=== PATIENT | male | born 1945 | race Caucasian/White ===

== ENCOUNTER 2020-06-24 08:21 | Day surgery (SDC) | payer MEDICARE ==
[2020-06-23 08:15] VITALS: BMI 33.7
== END 2020-06-24 11:35 | disposition home or self-care (01) ==
LOC: RAD 08:21
PROVIDERS: ATTEND Neurological Surgery
PROC: 009U3ZZ Drainage of Spinal Canal, Percutaneous Approach (ICD-10-PCS; principal; 2020-06-24)
DX: G91.2 (Idiopathic) normal pressure hydrocephalus (principal); I10 Essential (primary) hypertension
CPT/HCPCS: 62270

== ENCOUNTER 2020-07-17 12:14 | Outpatient (CLI) | payer MEDICARE ==
[2020-07-17 20:56] LABS: SARS-CoV-2 PCR by NAA Not Detected (NotDetected)
== END 2020-07-17 12:15 | disposition home or self-care (01) ==
LOC: LABBT 12:14
PROVIDERS: ATTEND Neurological Surgery
DX: Z01.818 Encounter for other preprocedural examination (principal); G91.2 (Idiopathic) normal pressure hydrocephalus; Z20.822 Contact with and (suspected) exposure to COVID-19
CPT/HCPCS: U0003; U0005; 87635; 93005; 93010

== ENCOUNTER 2020-07-17 12:15 | Inpatient (IN) | payer MEDICARE ==
[2020-07-21 09:10] VITALS: BMI 33.7
[2020-07-22] MEDS ORDERED: Lidocaine 0.5%/Epinephrine 1:200,000 50 ml Vial ONE (06:10)
[2020-07-22] MEDS ORDERED: Fentanyl 100 MCG/2 ML VIAL ONE ×3 (06:30→09:20)
[2020-07-22] MEDS ORDERED: Glycopyrrolate 0.2 MG/ML 5 ML SYRINGE ONE (07:30)
[2020-07-22] MEDS ORDERED: Ondansetron PF 4 MG/2 ML Vial ONE (07:30)
[2020-07-22] MEDS ORDERED: Dexamethasone 20 MG/5 ML VIAL ONE (07:30)
[2020-07-22] MEDS ORDERED: Rocuronium Bromide 10 MG/ML (10ML VIAL) ONE (07:30)
[2020-07-22] MEDS ORDERED: PROPOFOL 200 MG/20 ML VIAL ONE (07:30)
[2020-07-22] MEDS ORDERED: Lidocaine 1% PF 5 ML VIAL ONE (07:30)
[2020-07-22] MEDS ORDERED: PHENYLEPHRINE-NS 100 MCG/ML 10 ML SYRINGE ONE (07:30)
[2020-07-22] MEDS ORDERED: Labetalol HCl 100 MG/20 ML VIAL SLOW IVP PRN (08:32)
[2020-07-22] MEDS ORDERED: Docusate 100 MG CAP PO PRN (08:32)
[2020-07-22] MEDS ORDERED: Ondansetron PF 4 MG/2 ML Vial IVP PRN (08:32)
[2020-07-22] MEDS ORDERED: hydrALAZINE 20 MG/ML VIAL SLOW IVP PRN (08:32)
[2020-07-22] MEDS ORDERED: diphenhydrAMINE 50 MG/ML VIAL IVP PRN (08:32)
[2020-07-22] MEDS ORDERED: Morphine 4 MG/ML VIAL SLOW IVP PRN (08:32)
[2020-07-22] MEDS ORDERED: Acetaminophen/Codeine 30-300mg Tablet PO PRN (08:33)
[2020-07-22] MEDS ORDERED: TESTOSTERONE FS SCH (08:45)
[2020-07-22] MEDS ORDERED: hydrALAZINE 20 MG/ML VIAL ONE (09:01)
[2020-07-22] MEDS ORDERED: CBD OIL PO PRN (09:44)
[2020-07-22] MEDS ORDERED: Tamsulosin HCl 0.4 MG CAP ONE (12:42)
[2020-07-22] MEDS ORDERED: CEFAZOLIN 2 GM in Premix Bag 1 BAG IVPB SCH ×2 (14:00→17:00)
[2020-07-22] MEDS: Lactinex Tablet PO SCH (16:29)
[2020-07-22] MEDS: Lisinopril 20 MG TAB PO SCH (16:29)
[2020-07-22] MEDS: Sodium Chloride 0.9% 1,000 ML IV SCH (16:29)
[2020-07-22] MEDS: CEFAZOLIN 2 GM in Premix Bag 1 BAG IVPB SCH (16:52)
[2020-07-23] MEDS: Sodium Chloride 0.9% 1,000 ML IV SCH ×2 (00:04→10:47)
[2020-07-23] MEDS: CEFAZOLIN 2 GM in Premix Bag 1 BAG IVPB SCH ×2 (00:05→10:19)
[2020-07-23] MEDS: Acetaminophen/Codeine 30-300mg Tablet PO PRN ×2 (03:27→10:21)
[2020-07-23] MEDS ORDERED: Multivit, Therapeutic 1 TAB PO SCH (09:00)
[2020-07-23] MEDS ORDERED: BEET PO SCH (09:00)
[2020-07-23] MEDS: Lisinopril 20 MG TAB PO SCH (10:19)
[2020-07-23] MEDS: Lactinex Tablet PO SCH (10:19)
[2020-07-23 12:10] VITALS: BP 183/97; TEMP 98
== END 2020-07-23 13:04 | disposition home or self-care (01) | DRG 33 ==
LOC: SURG A 07-22 05:49 → EDSTATUS 07-22 12:15 → SURG B 07-22 14:58
PROVIDERS: ADMIT Neurological Surgery; ATTEND Neurological Surgery
PROC: 00160J6 Bypass Cerebral Ventricle to Peritoneal Cavity with Synthetic Substitute, Open Approach (ICD-10-PCS; principal; 2020-07-22)
DX: G91.2 (Idiopathic) normal pressure hydrocephalus (principal); E78.00 Pure hypercholesterolemia, unspecified; G89.29 Other chronic pain; I10 Essential (primary) hypertension; M10.9 Gout, unspecified; G47.30 Sleep apnea, unspecified; Z90.49 Acquired absence of other specified parts of digestive tract; R33.9 Retention of urine, unspecified
CPT/HCPCS: J0360; J0690; J1100; J2001; J2405; J2704; J3010; J3490

== ENCOUNTER 2020-08-01 07:21 | Inpatient (IN) | payer MEDICARE ==
[2020-08-01 08:01] LABS: #Basophils 0.1 thou/uL (0.0-0.2); #Eosinphils 0.2 thou/uL (0.0-0.7); #Lymphocytes 1.7 thou/uL (1.20-3.40); #Monocytes 0.4 thou/uL (0.11-0.59); %Basophils 0.4 % (0.0-1.0); %Eosinophils 1.3 % (0.0-10.0); %Lymphocytes 13.9 % (21.0-51.0); %Monocytes 3.5 % (0.0-10.0); %Neutrophils 80.9 % (42.0-75.0); Mean Corpuscular HGB CONC 32.6 g/dL (32.0-36.0); Mean Corpuscular Hemoglobin 29.9 pg (27.0-31.0); Mean Corpuscular Volume 91.8 fL (78.0-98.0); Platelet Count 398 thou/uL (130-400); RBC Distribution Width 14.3 % (11.5-14.5); Red Blood Cell (RBC) Count 6.01 mill/uL (4.70-6.10); White Blood Cell (WBC) Count 12.3 thou/uL (4.8-10.8)
[2020-08-01] MEDS ORDERED: Cefepime 2 GM VIAL ONE (08:06)
[2020-08-01] MEDS ORDERED: Ampicillin 2 GM VIAL ONE (08:06)
[2020-08-01 08:13] LABS: PTT 35.1 sec (22.9-36.1); Prothrombin Time 13.8 sec (12.0-14.7)
[2020-08-01] MEDS ORDERED: VANCOMYCIN 2 GRAM/400 ML BAG 2 GM in Premix Bag 1 BAG IVPB SCH (08:15)
[2020-08-01 08:20] LABS: ALT (SGPT) 21 U/L (8-55); AST (SGOT) 16 U/L (5-34); Alkaline Phosphatase 96 U/L (40-110); Anion Gap 13 mmol/L (10-20); BUN (Urea Nitrogen) 16 mg/dL (8.4-25.7); Calc. Creatinine Clearance 0 mL/min (70-130); Calcium 9.3 mg/dL (7.8-10.44); Carbon Dioxide 22 mmol/L (23-31); Chloride 107 mmol/L (98-107); Globulin 3.6 g/dL (2.4-3.5); Glucose 116 mg/dL (83-110); Protein, Total 7.6 g/dL (5.8-8.1); Sodium 138 mmol/L (136-145)
[2020-08-01 08:56] LABS: Bilirubin Negative (Negative); Blood, Urine Negative (Negative); Clarity Turbid (Clear); Glucose, Urine (Dipstick) Normal (Negative); Ketone, Urine Negative (Negative); Leukocyte Negative Leu/uL (Negative); Nitrite Negative (Negative); Protein, Urine (Dipstick) 10 mg/dL (Neg-Trace); Specific Gravity, Urine 1.026 (1.002-1.036); Urobilinogen Normal mg/dL (Less than 2)
[2020-08-01] MEDS ORDERED: Fentanyl 100 MCG/2 ML VIAL ONE (10:16)
[2020-08-01 11:06] LABS: Color Of CSF Supernatant COLORLESS (Colorless); Unspun CSF Color COLORLESS (Colorless)
[2020-08-01 11:11] LABS: Tube # 4
[2020-08-01 11:34] LABS: CSF, Glucose 54 mg/dl (40-70); CSF, Protein 113 mg/dL (15-40)
[2020-08-01 12:13] LABS: CSF Source CSF; Clarity Clear (Clear); Tube # 4
[2020-08-01 12:14] LABS: Clarity Clear (Clear)
[2020-08-01 12:31] LABS: Cell Count Non Hematic 14 %; Lymphocytes 6 %; Segmented Neutrophils 80 %
[2020-08-01 12:37] LABS: Cell Count Non Hematic 11 %; Lymphocytes 19 %; Segmented Neutrophils 70 %
[2020-08-01] MEDS ORDERED: Ondansetron ODT 4 MG TAB PO PRN (13:09)
[2020-08-01] MEDS ORDERED: Ondansetron PF 4 MG/2 ML Vial IVP PRN (13:09)
[2020-08-01] MEDS ORDERED: AMPicillin 2 GM in Dextrose 5% in Water 100 ML IVPB SCH (14:00)
[2020-08-01] MEDS ORDERED: Cefepime 2 GM in Sodium Chloride 0.9% 100 ML IVPB SCH (15:00)
[2020-08-01 15:27] VITALS: BMI 32.1
[2020-08-01] MEDS ORDERED: Acyclovir Sodium 730 MG in Sodium Chloride 0.9% 250 ML 250 ML IVPB SCH (16:00)
[2020-08-01] MEDS: Cefepime 2 GM in Sodium Chloride 0.9% 100 ML IVPB SCH (16:06)
[2020-08-01 17:06] LABS: Amphetamine Not Detected (NotDetected); Barbiturates Screen Not Detected (NotDetected); Benzodiazepine Screen Not Detected (NotDetected); Cocaine Metabolite Screen Not Detected (NotDetected); Medtox Control Line Valid? VALID (VALID); Medtox Reader # READER 1; Methadone Not Detected (NotDetected); Methamphetamine Not Detected (NotDetected); Opiate Screen Detected (NotDetected); Oxycodone Screen Not Detected (NotDetected); Phencyclidine (PCP) Not Detected (NotDetected); THC/Cannabinoid Screen Not Detected (NotDetected); Tricyclic Screen Not Detected (NotDetected)
[2020-08-01] MEDS: AMPicillin 2 GM in Dextrose 5% in Water 100 ML IVPB SCH ×2 (17:26→21:39)
[2020-08-01] MEDS: Acyclovir Sodium 730 MG in Sodium Chloride 0.9% 250 ML 250 ML IVPB SCH (18:48)
[2020-08-01] MEDS: Vancomycin 1 GM in Premix Bag 1 BAG IVPB SCH ×2 (21:33→22:19)
[2020-08-01] MEDS: Acetaminophen 325 MG TAB PO PRN (21:39)
[2020-08-02] MEDS: Cefepime 2 GM in Sodium Chloride 0.9% 100 ML IVPB SCH ×4 (01:16→23:45)
[2020-08-02] MEDS: AMPicillin 2 GM in Dextrose 5% in Water 100 ML IVPB SCH ×6 (01:16→21:23)
[2020-08-02] MEDS: Acyclovir Sodium 730 MG in Sodium Chloride 0.9% 250 ML 250 ML IVPB SCH ×3 (03:10→17:25)
[2020-08-02 06:05] LABS: #Basophils 0.1 thou/uL (0.0-0.2); #Eosinphils 0.4 thou/uL (0.0-0.7); #Lymphocytes 2.6 thou/uL (1.20-3.40); #Monocytes 0.8 thou/uL (0.11-0.59); #Neutrophils 6.1 thou/uL (1.40-6.50); %Eosinophils 3.8 % (0.0-10.0); %Lymphocytes 26.4 % (21.0-51.0); %Monocytes 7.7 % (0.0-10.0); %Neutrophils 61.2 % (42.0-75.0); Hemoglobin 16.4 g/dL (14.0-18.0); Mean Corpuscular HGB CONC 31.8 g/dL (32.0-36.0); Mean Corpuscular Hemoglobin 28.8 pg (27.0-31.0); Mean Corpuscular Volume 90.5 fL (78.0-98.0); Mean Platelet Volume 7.8 fL (7.4-10.4); Platelet Count 329 thou/uL (130-400); RBC Distribution Width 14.3 % (11.5-14.5); Red Blood Cell (RBC) Count 5.69 mill/uL (4.70-6.10); White Blood Cell (WBC) Count 9.9 thou/uL (4.8-10.8)
[2020-08-02 06:26] LABS: Anion Gap 10 mmol/L (10-20); BUN (Urea Nitrogen) 14 mg/dL (8.4-25.7); Calc. Creatinine Clearance 84 mL/min (70-130); Carbon Dioxide 23 mmol/L (23-31); Chloride 110 mmol/L (98-107); Glucose 104 mg/dL (83-110); Potassium 3.8 mmol/L (3.5-5.1); Sodium 139 mmol/L (136-145)
[2020-08-02] MEDS: Enoxaparin Sodium 40 MG/0.4 ML SYRINGE SC SCH (08:37)
[2020-08-02] MEDS: Vancomycin 1 GM in Premix Bag 1 BAG IVPB SCH ×2 (10:10→20:19)
[2020-08-02] MEDS ORDERED: Lactinex Tablet PO SCH (12:30)
[2020-08-02] MEDS ORDERED: Polyethylene Glycol 3350 17 GM Packet PO SCH (12:30)
[2020-08-02] MEDS ORDERED: Lisinopril 20 MG TAB PO SCH (12:30)
[2020-08-02] MEDS ORDERED: AMPicillin 2 GM in Dextrose 5% in Water 100 ML IVPB SCH (18:00)
[2020-08-02] MEDS ORDERED: Amlodipine 5 MG TAB PO SCH (18:15)
[2020-08-02] MEDS: Senokot S 8.6-50 MG TAB PO SCH (20:19)
[2020-08-03] MEDS: AMPicillin 2 GM in Dextrose 5% in Water 100 ML IVPB SCH (00:48)
[2020-08-03] MEDS: Acyclovir Sodium 730 MG in Sodium Chloride 0.9% 250 ML 250 ML IVPB SCH ×3 (02:48→17:13)
[2020-08-03] MEDS ORDERED: Ampicillin 2 GM in Sodium Chloride 0.9% 100 ML IVPB SCH (05:00)
[2020-08-03] MEDS: Vancomycin 1 GM in Premix Bag 1 BAG IVPB SCH (08:24)
[2020-08-03 08:27] LABS: Vancomycin, Trough 11.7 ug/mL
[2020-08-03] MEDS ORDERED: Metoprolol Tartrate 5 MG/5 ML VIAL IVP PRN (08:28)
[2020-08-03] MEDS: Senokot S 8.6-50 MG TAB PO SCH ×2 (08:30→20:08)
[2020-08-03] MEDS: Polyethylene Glycol 3350 17 GM Packet PO SCH (08:31)
[2020-08-03] MEDS: Enoxaparin Sodium 40 MG/0.4 ML SYRINGE SC SCH (08:33)
[2020-08-03] MEDS: Acetaminophen 325 MG TAB PO PRN ×2 (08:34→20:09)
[2020-08-03] MEDS: Amlodipine 5 MG TAB PO SCH ×2 (08:34→20:08)
[2020-08-03] MEDS: Lactinex Tablet PO SCH (08:34)
[2020-08-03] MEDS: Lisinopril 20 MG TAB PO SCH (08:34)
[2020-08-03] MEDS ORDERED: Amlodipine 5 MG TAB PO SCH (09:00)
[2020-08-03] MEDS ORDERED: traMADol HCl 50 MG TAB PO PRN (09:21)
[2020-08-03] MEDS: Cefepime 2 GM in Sodium Chloride 0.9% 100 ML IVPB SCH ×2 (09:27→15:58)
[2020-08-03] MEDS: HYDROcodone/Acetaminophen 5/325 mg Tablet PO PRN (11:24)
[2020-08-03] MEDS: Vancomycin 1.5 GRAM/300 ML BAG 1.5 GM in Premix Bag 1 BAG IVPB SCH (20:08)
[2020-08-04] MEDS: Cefepime 2 GM in Sodium Chloride 0.9% 100 ML IVPB SCH ×4 (00:02→23:13)
[2020-08-04] MEDS: Acyclovir Sodium 730 MG in Sodium Chloride 0.9% 250 ML 250 ML IVPB SCH ×3 (01:38→17:10)
[2020-08-04] MEDS: HYDROcodone/Acetaminophen 5/325 mg Tablet PO PRN (07:02)
[2020-08-04] MEDS: Lisinopril 20 MG TAB PO SCH (08:58)
[2020-08-04] MEDS: Enoxaparin Sodium 40 MG/0.4 ML SYRINGE SC SCH (08:58)
[2020-08-04] MEDS: Amlodipine 5 MG TAB PO SCH ×2 (08:58→20:37)
[2020-08-04] MEDS: Lactinex Tablet PO SCH (08:58)
[2020-08-04] MEDS: Polyethylene Glycol 3350 17 GM Packet PO SCH (08:59)
[2020-08-04] MEDS: Senokot S 8.6-50 MG TAB PO SCH ×2 (08:59→20:40)
[2020-08-04] MEDS: Vancomycin 1.5 GRAM/300 ML BAG 1.5 GM in Premix Bag 1 BAG IVPB SCH ×2 (09:30→20:40)
[2020-08-04] MEDS: AMPicillin 1 GM in Sodium Chloride 0.9% 100 ML IVPB SCH ×2 (14:39→19:52)
[2020-08-05] MEDS: AMPicillin 1 GM in Sodium Chloride 0.9% 100 ML IVPB SCH ×4 (02:22→20:26)
[2020-08-05] MEDS: Acyclovir Sodium 730 MG in Sodium Chloride 0.9% 250 ML 250 ML IVPB SCH ×3 (02:53→22:48)
[2020-08-05] MEDS: Lisinopril 20 MG TAB PO SCH (09:17)
[2020-08-05] MEDS: Lactinex Tablet PO SCH (09:17)
[2020-08-05] MEDS: Senokot S 8.6-50 MG TAB PO SCH ×2 (09:17→20:26)
[2020-08-05] MEDS: Amlodipine 5 MG TAB PO SCH ×2 (09:17→20:26)
[2020-08-05] MEDS: HYDROcodone/Acetaminophen 5/325 mg Tablet PO PRN ×2 (09:17→16:00)
[2020-08-05] MEDS: Polyethylene Glycol 3350 17 GM Packet PO SCH (09:18)
[2020-08-05] MEDS: Enoxaparin Sodium 40 MG/0.4 ML SYRINGE SC SCH (09:18)
[2020-08-05 09:52] LABS: Vancomycin, Trough 17.2 ug/mL
[2020-08-05] MEDS: Cefepime 2 GM in Sodium Chloride 0.9% 100 ML IVPB SCH ×2 (10:25→15:58)
[2020-08-05] MEDS: Vancomycin 1.5 GRAM/300 ML BAG 1.5 GM in Premix Bag 1 BAG IVPB SCH ×2 (11:10→21:08)
[2020-08-06] MEDS: Cefepime 2 GM in Sodium Chloride 0.9% 100 ML IVPB SCH ×3 (00:16→16:36)
[2020-08-06] MEDS: AMPicillin 1 GM in Sodium Chloride 0.9% 100 ML IVPB SCH ×3 (01:52→13:20)
[2020-08-06] MEDS: Acyclovir Sodium 730 MG in Sodium Chloride 0.9% 250 ML 250 ML IVPB SCH ×2 (05:06→15:20)
[2020-08-06] MEDS: Senokot S 8.6-50 MG TAB PO SCH (07:58)
[2020-08-06] MEDS: Polyethylene Glycol 3350 17 GM Packet PO SCH (07:58)
[2020-08-06] MEDS: Enoxaparin Sodium 40 MG/0.4 ML SYRINGE SC SCH (08:02)
[2020-08-06] MEDS: Lactinex Tablet PO SCH (08:11)
[2020-08-06] MEDS: Lisinopril 20 MG TAB PO SCH (08:11)
[2020-08-06] MEDS: Amlodipine 5 MG TAB PO SCH (08:11)
[2020-08-06] MEDS: Vancomycin 1.5 GRAM/300 ML BAG 1.5 GM in Premix Bag 1 BAG IVPB SCH (09:29)
[2020-08-06 16:17] VITALS: BP 149/83; TEMP 98.5
== END 2020-08-06 17:11 | disposition home or self-care (01) | DRG 92 ==
LOC: ERS 07:21 → 2SE 13:12
PROVIDERS: ADMIT Internal Medicine; ATTEND Internal Medicine
PROC: 009U3ZX Drainage of Spinal Canal, Percutaneous Approach, Diagnostic (ICD-10-PCS; principal; 2020-08-01)
DX: T85.730A Infection and inflammatory reaction due to ventricular intracranial (communicating) shunt, initial encounter (principal); G91.2 (Idiopathic) normal pressure hydrocephalus; Z20.822 Contact with and (suspected) exposure to COVID-19; Y83.8 Other surgical procedures as the cause of abnormal reaction of the patient, or of later complication, without mention of misadventure at the time of the procedure; D45 Polycythemia vera; I10 Essential (primary) hypertension; F41.9 Anxiety disorder, unspecified; F32.9 Major depressive disorder, single episode, unspecified; Z88.8 Allergy status to other drugs, medicaments and biological substances; Z90.49 Acquired absence of other specified parts of digestive tract; Z79.899 Other long term (current) drug therapy
CPT/HCPCS: 36415; 62270; 70450; 71045; 75809; 80048; 80053; 80202; 80306; 81003; 82140; 82945; 83605; 84157; 85025; 85060; 85610; 85730; 87040; 87070; 87086; 87205; 89051; 93005; 93970; 94760; 96365; 96366; 96367; 96375; J0133; J0290; J0692; J1650; J3010; J3370; J3490; J7050; J7070

== ENCOUNTER 2020-10-13 12:41 | Outpatient (CLI) | payer MEDICARE | END 2020-10-13 12:42 | disposition home or self-care (01) | LOC: CT 12:41 | PROVIDERS: ATTEND Neurological Surgery | DX: G91.9 Hydrocephalus, unspecified (principal) | CPT/HCPCS: 70450 ==

== ENCOUNTER 2020-10-28 08:32 | Day surgery (SDC) | payer MEDICARE ==
[2020-10-27 14:03] VITALS: BMI 31.1
[2020-10-28] MEDS ORDERED: Lidocaine 1% w/Epinephrine 1:100K 20 ML VIAL ONE (10:10)
[2020-10-28] MEDS ORDERED: Bupivacaine 0.25% HCL 30 ML VIAL ONE (10:10)
[2020-10-28] MEDS ORDERED: Fentanyl 100 MCG/2 ML VIAL ONE (10:22)
[2020-10-28] MEDS ORDERED: HYDROmorphone 2 MG/ML VIAL ONE (10:23)
[2020-10-28] MEDS ORDERED: Dexamethasone 20 MG/5 ML VIAL ONE (11:06)
[2020-10-28] MEDS ORDERED: PROPOFOL 200 MG/20 ML VIAL ONE (11:06)
[2020-10-28] MEDS ORDERED: Lidocaine 1% PF 5 ML VIAL ONE (11:06)
[2020-10-28] MEDS ORDERED: Glycopyrrolate 0.2 MG/ML 5 ML SYRINGE ONE (11:06)
[2020-10-28] MEDS ORDERED: Ondansetron PF 4 MG/2 ML Vial ONE (11:06)
[2020-10-28] MEDS ORDERED: Rocuronium Bromide 10 MG/ML (10ML VIAL) ONE (11:06)
[2020-10-28] MEDS ORDERED: Morphine Sulfate 2 MG/ML SYRINGE SLOW IVP PRN (11:33)
[2020-10-28] MEDS ORDERED: Promethazine HCl 25 MG/ML VIAL IVPB PRN (11:33)
[2020-10-28] MEDS ORDERED: Ondansetron HCl/PF 4 MG/2 ML Vial IVP PRN (11:33)
[2020-10-28] MEDS ORDERED: Promethazine HCl 25 MG/ML VIAL IM PRN (11:33)
[2020-10-28] MEDS ORDERED: Meperidine HCl/PF 25 MG/ML VIAL SLOW IVP PRN (11:33)
== END 2020-10-28 13:50 | disposition home or self-care (01) ==
LOC: SDC 08:32
PROVIDERS: ATTEND Surgery
PROC: 0WUF0JZ Supplement Abdominal Wall with Synthetic Substitute, Open Approach (ICD-10-PCS; principal; 2020-10-28)
DX: K42.9 Umbilical hernia without obstruction or gangrene (principal); I25.10 Atherosclerotic heart disease of native coronary artery without angina pectoris; Z79.899 Other long term (current) drug therapy; Z88.8 Allergy status to other drugs, medicaments and biological substances; Z91.09 Other allergy status, other than to drugs and biological substances; Z98.2 Presence of cerebrospinal fluid drainage device
CPT/HCPCS: J0690; J1100; J1170; J2405; J2704; J3010; S0020

== ENCOUNTER 2020-12-31 12:05 | Outpatient (CLI) | payer MEDICARE | END 2020-12-31 12:06 | disposition home or self-care (01) | LOC: CT 12:05 | PROVIDERS: ATTEND Neurological Surgery | DX: G91.9 Hydrocephalus, unspecified (principal) | CPT/HCPCS: 70450 ==

== ENCOUNTER 2021-07-26 20:42 | Inpatient (IN) | payer MEDICARE ==
[2021-07-26 21:48] LABS: Bilirubin Negative (Negative); Blood, Urine Negative (Negative); Clarity Clear (Clear); Glucose, Urine (Dipstick) Normal (Negative); Ketone, Urine Negative (Negative); Leukocyte Negative Leu/uL (Negative); Nitrite Negative (Negative); Protein, Urine (Dipstick) Negative (Neg-Trace); Specific Gravity, Urine 1.011 (1.002-1.036); Urobilinogen Normal mg/dL (Less than 2); pH, Urine 5.5 (5.0-9.0)
[2021-07-26 21:54] LABS: Hemoglobin 16.9 g/dL (14.0-18.0); Mean Corpuscular HGB CONC 33.1 g/dL (32.0-36.0); Mean Corpuscular Hemoglobin 31.1 pg (27.0-31.0); Mean Corpuscular Volume 93.9 fL (78.0-98.0); Mean Platelet Volume 8.3 fL (7.4-10.4); Platelet Count 207 thou/uL (130-400); RBC Distribution Width 14.1 % (11.5-14.5); Red Blood Cell (RBC) Count 5.42 mill/uL (4.70-6.10)
[2021-07-26 22:21] LABS: Band 3 % (5-11); Eosinophils 2 % (0-10); Lymphocytes 7 % (21-51); MDiff Complete? YES; Monocytes 10 % (0-10); Neutrophil 77 % (42-75); Reactive Lymphocytes 1 % (0-10)
[2021-07-26 23:10] LABS: ALT (SGPT) 12 U/L (8-55); AST (SGOT) 14 U/L (5-34); Albumin 4.1 g/dL (3.4-4.8); Alkaline Phosphatase 85 U/L (40-110); Anion Gap 15 mmol/L (10-20); BUN (Urea Nitrogen) 14 mg/dL (8.4-25.7); Bilirubin, Total 1.1 mg/dL (0.2-1.2); Calc. Creatinine Clearance 0 mL/min (70-130); Calcium 9.2 mg/dL (7.8-10.44); Carbon Dioxide 21 mmol/L (23-31); Chloride 108 mmol/L (98-107); Globulin 3.6 g/dL (2.4-3.5); Glucose 100 mg/dL (83-110); Potassium 3.8 mmol/L (3.5-5.1); Protein, Total 7.7 g/dL (5.8-8.1); Sodium 140 mmol/L (136-145)
[2021-07-27 02:44] LABS: SARS-CoV-2 NAA Rapid Test DETECTED (NotDetected)
[2021-07-27 03:06] VITALS: BMI 32.0
[2021-07-27] MEDS ORDERED: Acetaminophen 500 MG TAB PO PRN (13:06)
[2021-07-27] MEDS ORDERED: diphenhydrAMINE 25 MG CAP PO PRN (13:06)
[2021-07-27] MEDS ORDERED: Benzonatate 100 MG CAP PO PRN (13:06)
[2021-07-27] MEDS ORDERED: Senokot S 8.6-50 MG TAB PO PRN (13:06)
[2021-07-27] MEDS ORDERED: hydrALAZINE 20 MG/ML VIAL SLOW IVP PRN (13:06)
[2021-07-27] MEDS ORDERED: Sodium Chloride 0.65% Nasal 44 ML BOT EA NARE PRN (13:06)
[2021-07-27] MEDS ORDERED: Ondansetron PF 4 MG/2 ML Vial IVP PRN (13:06)
[2021-07-27] MEDS ORDERED: Loperamide HCl 2 MG CAP PO PRN (13:06)
[2021-07-27] MEDS ORDERED: Ondansetron ODT 4 MG TAB PO PRN (13:06)
[2021-07-27] MEDS: Sodium Chloride 0.9% 1,000 ML IV SCH (13:58)
[2021-07-27] MEDS ORDERED: Dexamethasone 10 MG in Sodium Chloride 0.9% 50 ML IVPB SCH (17:17)
[2021-07-27] MEDS ORDERED: Dexamethasone 4 mg/ml Vial ONE (17:24)
[2021-07-27] MEDS ORDERED: Dexamethasone 10 MG/ML VIAL SLOW IVP SCH (17:45)
[2021-07-28] MEDS: Sodium Chloride 0.9% 1,000 ML IV SCH ×3 (00:02→16:21)
[2021-07-28 06:36] LABS: #Lymphocytes 0.7 thou/uL (1.20-3.40); #Monocytes 0.2 thou/uL (0.11-0.59); #Neutrophils 2.4 thou/uL (1.40-6.50); %Eosinophils 0.4 % (0.0-10.0); %Lymphocytes 21.4 % (21.0-51.0); %Monocytes 6.8 % (0.0-10.0); %Neutrophils 71.5 % (42.0-75.0); Mean Corpuscular HGB CONC 32.7 g/dL (32.0-36.0); Mean Corpuscular Hemoglobin 31.4 pg (27.0-31.0); Mean Corpuscular Volume 95.8 fL (78.0-98.0); Mean Platelet Volume 7.9 fL (7.4-10.4); Platelet Count 196 thou/uL (130-400); RBC Distribution Width 13.6 % (11.5-14.5); Red Blood Cell (RBC) Count 4.77 mill/uL (4.70-6.10); White Blood Cell (WBC) Count 3.3 thou/uL (4.8-10.8)
[2021-07-28 06:53] LABS: ALT (SGPT) 11 U/L (8-55); AST (SGOT) 14 U/L (5-34); Albumin 3.5 g/dL (3.4-4.8); Alkaline Phosphatase 72 U/L (40-110); Anion Gap 12 mmol/L (10-20); BUN (Urea Nitrogen) 14 mg/dL (8.4-25.7); Bilirubin, Total 0.7 mg/dL (0.2-1.2); Calc. Creatinine Clearance 78 mL/min (70-130); Calcium 8.4 mg/dL (7.8-10.44); Carbon Dioxide 26 mmol/L (23-31); Chloride 107 mmol/L (98-107); Globulin 2.8 g/dL (2.4-3.5); Glucose 135 mg/dL (83-110); Magnesium 1.6 mg/dL (1.6-2.6); Protein, Total 6.3 g/dL (5.8-8.1); Sodium 141 mmol/L (136-145)
[2021-07-28] MEDS: Enoxaparin Sodium 40 MG/0.4 ML SYRINGE SC SCH (08:04)
[2021-07-28] MEDS: Dexamethasone 10 MG/ML VIAL SLOW IVP SCH (08:04)
[2021-07-29] MEDS: Sodium Chloride 0.9% 1,000 ML IV SCH (00:57)
[2021-07-29 07:19] LABS: Hemoglobin 15.5 g/dL (14.0-18.0); Mean Corpuscular HGB CONC 33.4 g/dL (32.0-36.0); Mean Corpuscular Hemoglobin 31.6 pg (27.0-31.0); Mean Corpuscular Volume 94.4 fL (78.0-98.0); Mean Platelet Volume 8.1 fL (7.4-10.4); Platelet Count 235 thou/uL (130-400); RBC Distribution Width 13.9 % (11.5-14.5); Red Blood Cell (RBC) Count 4.93 mill/uL (4.70-6.10); White Blood Cell (WBC) Count 6.8 thou/uL (4.8-10.8)
[2021-07-29 07:21] LABS: ALT (SGPT) 11 U/L (8-55); AST (SGOT) 15 U/L (5-34); Albumin 3.6 g/dL (3.4-4.8); Alkaline Phosphatase 74 U/L (40-110); Anion Gap 12 mmol/L (10-20); BUN (Urea Nitrogen) 12 mg/dL (8.4-25.7); Bilirubin, Total 0.5 mg/dL (0.2-1.2); Calc. Creatinine Clearance 97 mL/min (70-130); Calcium 8.5 mg/dL (7.8-10.44); Carbon Dioxide 24 mmol/L (23-31); Chloride 109 mmol/L (98-107); Glucose 94 mg/dL (83-110); Magnesium 1.7 mg/dL (1.6-2.6); Potassium 3.6 mmol/L (3.5-5.1); Protein, Total 6.6 g/dL (5.8-8.1); Sodium 141 mmol/L (136-145)
[2021-07-29 08:20] VITALS: TEMP 97.3
[2021-07-29] MEDS: Enoxaparin Sodium 40 MG/0.4 ML SYRINGE SC SCH (08:29)
[2021-07-29] MEDS: Dexamethasone 10 MG/ML VIAL SLOW IVP SCH (08:29)
[2021-07-29 09:37] LABS: Band 18 % (5-11); Lymphocytes 25 % (21-51); MDiff Complete? YES; Monocytes 4 % (0-10); Neutrophil 44 % (42-75); RBC Morphology Normal; Reactive Lymphocytes 10 % (0-10)
[2021-07-29 11:56] VITALS: BP 150/91
== END 2021-07-29 11:44 | disposition home or self-care (01) | DRG 177 ==
LOC: ERS 20:42 → T4-A 07-27 01:17 → OBSVTOIN 07-29 10:11
PROVIDERS: ADMIT Student in an Organized Health Care Education/Training Program; ATTEND Internal Medicine
PROC: 8E0ZXY6 Isolation (ICD-10-PCS; principal; 2021-07-29)
DX: U07.1 COVID-19 (principal); J12.82 Pneumonia due to coronavirus disease 2019; G93.41 Metabolic encephalopathy; J96.01 Acute respiratory failure with hypoxia; N39.0 Urinary tract infection, site not specified; D45 Polycythemia vera; I10 Essential (primary) hypertension; F12.11 Cannabis abuse, in remission; F17.220 Nicotine dependence, chewing tobacco, uncomplicated; Z98.890 Other specified postprocedural states; Z90.49 Acquired absence of other specified parts of digestive tract; Z79.899 Other long term (current) drug therapy; Z88.8 Allergy status to other drugs, medicaments and biological substances; Z72.89 Other problems related to lifestyle; Z91.09 Other allergy status, other than to drugs and biological substances
CPT/HCPCS: 36415; 70450; 71045; 80053; 81003; 83605; 83735; 84484; 85025; 86140; 87040; 87086; 93005; J0360; J1100; J1650; J7050; U0002

== ENCOUNTER 2021-08-17 12:25 | Outpatient (CLI) | payer MEDICARE | END 2021-08-17 12:26 | disposition home or self-care (01) | LOC: TBSIIMAG 12:25 | PROVIDERS: ATTEND Neurological Surgery | DX: R26.9 Unspecified abnormalities of gait and mobility (principal); R53.1 Weakness; M48.02 Spinal stenosis, cervical region; M48.03 Spinal stenosis, cervicothoracic region; M47.812 Spondylosis without myelopathy or radiculopathy, cervical region; M47.816 Spondylosis without myelopathy or radiculopathy, lumbar region; M47.817 Spondylosis without myelopathy or radiculopathy, lumbosacral region; M48.061 Spinal stenosis, lumbar region without neurogenic claudication; M48.07 Spinal stenosis, lumbosacral region; Q76.49 Other congenital malformations of spine, not associated with scoliosis | CPT/HCPCS: 72141; 72148 ==